=== PATIENT | male | born 1990 | race Caucasian/White ===

== ENCOUNTER 2017-03-13 14:05 | Emergency (ER) | payer OTHER ==
[2017-03-13 14:14] VITALS: TEMP 98.4
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
[2017-03-13 17:07] VITALS: BP 124/72; PULSE 85; RESP 17
[2017-03-13 23:02] VITALS: O2SAT 99
== END 2017-03-13 17:08 | disposition home or self-care (01) ==
LOC: C.ER 14:05
DX: S63.501A Unspecified sprain of right wrist, initial encounter (principal); X58.XXXA Exposure to other specified factors, initial encounter; Y93.89 Activity, other specified; M79.641 Pain in right hand